=== PATIENT | male | born 1955 | race Caucasian/White ===

== ENCOUNTER 2019-12-21 09:22 | Day surgery (SDC) | payer OTHER ==
[~2019-12-21] VITALS: Ht 175.3 cm; Wt 86.2 kg
[~2019-12-21 09:22] MED LIST: ADULT LOW DOSE81 MG PO; FLOMAX0.4 MG PO; HYDROCHLOROTHIA25 MG PO; MULTIVITAMINS1 EAC7 PO; OMEPRAZOLE20 MG PO; PRAVACHOL20 MG PO; VITAMIN D325 MC2 PO
--- NOTE | 2019-12-21 11:26 | NUR ---
12/21/19 1126 Lexie Price 1122 PATIENT ARRIVES TO PACU AWAKE, BUT DROWSY. RESP EVEN AND UNLABORED, ROOM AIR SATS >90%. PATIENT DENIES PAIN/NAUSEA. PATIENT ASLEEP/SNORING WHEN NOT STIMULATED.
--- NOTE | 2019-12-22 07:46 | OR ---
[facility] [address] [place], [place] [address] Signed DATE OF OPERATION: 12/21/2019 SURGEON: Grisel Malloy MD PREOPERATIVE DIAGNOSES: 1. Generalized abdominal pain. 2. Guaiac-positive stool. 3. Possible family history of colonic polyps. 4. Gastroesophageal reflux disease. 5. Daily aspirin use. POSTOPERATIVE DIAGNOSES: 1. Moderate sized hiatal hernia (44-38 cm). 2. Mild diffuse gastritis. 3. Moderate sigmoid diverticulosis. 4. A 4 mm polyps x2, distal right colon. 5. A 4 mm polyps x1, transverse colon. PROCEDURES: 1. EGD with CLOtest and biopsies of the pyloric bulb and antrum. 2. Colonoscopy with hot biopsy. ESTIMATED BLOOD LOSS: None. INDICATIONS: Slick is a 64-year-old gentleman, who asked to see me for upper and lower endoscopy. He was having generalized abdominal pain, was found to have guaiac-positive stool. He is known to have acid reflux for years and uses aspirin on a daily basis. He is pretty sure there are family members, who have colonic polyps. He was going to check with his family to clarify that in more detail. In the office I had given Slick pamphlets on both upper and lower endoscopy. We looked at those together in detail. He understands the nature of the two tests along with the risks including, but not limited to gas bloating, crampy abdominal pain, bleeding, perforation requiring surgery, and missed diagnosis. He also understands the need for IV conscious sedation. He had expressed understanding and wished to proceed. DESCRIPTION OF PROCEDURE: Slick was taken into our endoscopy suite and placed in the supine semi-recumbent position. The posterior oropharynx was anesthetized with lidocaine spray. A bite block Electronically Signed By: GRISEL MALLOY MD 12/22/19 0746 PATIENT NAME: SLICK HEDRICK OPERATIVE REPORT DATE OF : 51 REPORT #: [id number] PHYSICIAN: GRISEL MALLOY MD PCP: KARLIE ALMAGUER REPORT IS CONFIDENTIAL AND NOT TO BE RELEASED WITHOUT AUTHORIZATION [facility] [address] [place], [place] [address] Signed was utilized for the case. A total of 8 mg of Versed and 200 mcg fentanyl was used to cover both upper and lower endoscopy. The adult gastroscope had been introduced and advanced out into the third portion of the duodenum under direct visualization of camera without difficulty. The duodenum and pyloric channel were not particularly concerning. He seemed to have mild inflammatory changes throughout his stomach. We took a biopsy from the antrum for CLOtest as well as pathologic review. Upon retroflexion of scope, we can easily see a moderate-sized hiatal hernia. It measured out 44-38 cm. His Z-line is relatively intact. There was no Wilson's mucosa and no distal esophagitis. The middle and upper esophagus were unremarkable. After this, the gas had been suctioned out and the gastroscope removed. Slick tolerated the upper endoscopy quite well. Slick was then rotated into the left lateral decubitus position. He was given IV sedation with ongoing Versed and fentanyl. A digital rectal exam had been performed and he does have an indurated prostate gland. The adult colonoscope was introduced and advanced under direct visualization of camera up into the cecum itself. He did require some extra sedation on the way in. His prep was average. We could easily see the appendiceal orifice and ileocecal valve. The scope was slowly withdrawn. The above-mentioned polyps were easily removed with the help of hot biopsy forceps. He also has moderate sigmoid diverticulosis. They are moderate in size, moderate in number, and scattered about. Upon retroflexion of scope in the rectum, he had some very tiny internal anal skin tags. After this, the gas was suctioned out and the colonoscope removed. Slick tolerated the lower endoscopy quite well. RECOMMENDATIONS: I will see Slick back in my office in 7 to 14 days to review his results. He can resume his aspirin in one week. He can resume his other medications today. Grisel Malloy MD ALB/MODL /[id number] cc: SOPHIA Yost MD Electronically Signed By: GRISEL MALLOY MD 12/22/19 0746 PATIENT NAME: SLICK HEDRICK OPERATIVE REPORT DATE OF : 51 REPORT #: [id number] PHYSICIAN: GRISEL MALLOY MD PCP: KARLIE ALMAGUER REPORT IS CONFIDENTIAL AND NOT TO BE RELEASED WITHOUT AUTHORIZATION [address] [address] Signed Copies: KARLIE ALMAGUER ANDREW L MD ~ Electronically Signed By: GRISEL MALLOY MD 12/22/19 0746 PATIENT NAME: SLICK HEDRICK OPERATIVE REPORT DATE OF : 51 REPORT #: [id number] PHYSICIAN: GRISEL MALLOY MD PCP: KARLIE ALMAGUER REPORT IS CONFIDENTIAL AND NOT TO BE RELEASED WITHOUT AUTHORIZATION
--- NOTE | 2019-12-23 14:45 | PATH ---
[facility] [address] [facility] [place], [place] [address] Signed SPECIMEN(S): A DUODENAL BULB SPECIMEN(S): B ANTRUM/ANTRAL BIOPSY SPECIMEN(S): C DISTAL ASCENDING POLYP SPECIMEN(S): D TRANSVERSE POLYP SPECIMEN SOURCE: A. DUODENAL BULB B. ANTRUM/ANTRAL BIOPSY C. DISTAL ASCENDING POLYP D. TRANSVERSE POLYP CLINICAL HISTORY: Positive guaiac stool, abdominal pain. Postop: Gastritis, diverticulosis, colon polyps. MICROSCOPIC DESCRIPTION: Histologic sections of all submitted blocks are examined by light microscopy. These findings, together with the gross examination, support the pathologic diagnosis. FINAL PATHOLOGIC DIAGNOSIS: A. Duodenum, bulb, biopsy: - Duodenal mucosa with no histopathologic abnormality. - Negative for dysplasia or malignancy. B. Stomach, antrum, biopsy: - Antral mucosa with chronic, inactive gastritis and focal complete intestinal metaplasia. - Negative for Helicobacter organisms on HE stain. - Negative for dysplasia or malignancy. C. Colon, distal ascending, polyp, polypectomy: - Fragments of cauterized colonic mucosa. - Negative for high-grade dysplasia or malignancy. - See Comment. D. Colon, transverse, polyp, polypectomy: - Cauterized colonic mucosa. - Negative for high-grade dysplasia or malignancy. - See Comment. COMMENT: Regarding specimens C and D: Multiple additional sections were examined. The degree of cautery artifact present precludes complete histologic examination; however, the tissue is favored to be negative PATIENT NAME: RYLEYJUANCARLOS Kylie PATHOLOGY DATE OF : 51 REPORT #: [id number] PHYSICIAN: MARY ANNE HERZOG PCP: KARLIE ALMAGUER REPORT IS CONFIDENTIAL AND NOT TO BE RELEASED WITHOUT AUTHORIZATION [facility] [address] [place], [place] [address] Signed for low-grade dysplasia. NAL:cml:C2NR GROSS DESCRIPTION: Four specimens are received in four containers, labeled "WW." A. The specimen, labeled "WW, 1," and designated on the requisition "duodenum bulb," is received in formalin and consists of one vaughan soft tissue fragment that measures 0.3 cm in greatest dimension. The specimen is entirely submitted in cassette (A1). B. The specimen, labeled "WW, 2," and designated on the requisition "antrum," is received in formalin and consists of one vaughan soft tissue fragment that measures 0.3 cm in greatest dimension. The specimen is entirely submitted in cassette (B1). C. The specimen, labeled "WW, 3," and designated on the requisition "distal ascending polyp," is received in formalin and consists of two vaughan soft tissue polypoid fragments that measure 0.3 cm in greatest dimension. The specimen is entirely submitted in cassette (C1). D. The specimen, labeled "WW, 4," and designated on the requisition "transverse polyp," is received in formalin and consists of one vaughan soft tissue polypoid fragment that measures 0.3 cm in greatest dimension. The specimen is entirely submitted in cassette (D1). AT (under the direct supervision of a pathologist) The Gross Description was prepared using a voice recognition system. The report was reviewed for accuracy; however, sound-alike word errors, addition and/or deletions may occur. If there is any question about this report, please contact Client Services. PERFORMING LABORATORY: The technical component was performed by [facility], [address] [place] [id number] (Van Cdl Driver: Payton Cardozo MD; CLIA# [id number]). [facility] [address] [address] [address] (CLIA# [id number]). Diagnostician: Ansley Stone MD Pathologist Electronically Signed 12/23/2019 Copies: PATIENT NAME: JUANCARLOS HEDRICK PATHOLOGY DATE OF : 51 REPORT #: [id number] PHYSICIAN: MARY ANNE PATHOLOGY PCP: KARLIE ALMAGUER REPORT IS CONFIDENTIAL AND NOT TO BE RELEASED WITHOUT AUTHORIZATION [facility] [address] [place] [place], [place] [address] Signed ~ PATIENT NAME: JUANCARLOS HEDRICK PATHOLOGY DATE OF : 51 REPORT #: [id number] PHYSICIAN: MARY ANNE PATHOLOGY PCP: KARLIE ALMAGUER MAGNETIZER REPORT IS CONFIDENTIAL AND NOT TO BE RELEASED WITHOUT AUTHORIZATION
== END 2019-12-21 12:00 | disposition home or self-care (01) ==
LOC: OPS 09:22
PROVIDERS: Colon & Rectal Surgery
PROC: 0DBK8ZZ Excision of Ascending Colon, Via Natural or Artificial Opening Endoscopic (ICD-10-PCS; 2019-12-21)
PROC: 0DBL8ZZ Excision of Transverse Colon, Via Natural or Artificial Opening Endoscopic (ICD-10-PCS; 2019-12-21)
PROC: 0DB98ZX Excision of Duodenum, Via Natural or Artificial Opening Endoscopic, Diagnostic (ICD-10-PCS; principal; 2019-12-21 10:30)
PROC: 0DB78ZX Excision of Stomach, Pylorus, Via Natural or Artificial Opening Endoscopic, Diagnostic (ICD-10-PCS; 2019-12-21 10:30)
DX: K63.5 Polyp of colon (principal); K64.8 Other hemorrhoids; K57.30 Diverticulosis of large intestine without perforation or abscess without bleeding; K29.50 Unspecified chronic gastritis without bleeding; I10 Essential (primary) hypertension; K21.9 Gastro-esophageal reflux disease without esophagitis; E78.5 Hyperlipidemia, unspecified; Z79.899 Other long term (current) drug therapy; Z79.82 Long term (current) use of aspirin
CPT/HCPCS: 86677; 88305; 99153; G0500; J2250; J3010; J7121

== ENCOUNTER 2024-05-09 19:55 | Emergency (ER) | payer OTHER ==
[~2024-05-09] VITALS: Ht 175.3 cm; Wt 74.6 kg
[2024-05-09 20:19] LABS: HEMATOCRIT 41.8 % (35.0-50.0); HEMOGLOBIN 14.5 g/dL (12.0-18.0); MCH 31.8 (27-36); MCHC 34.6 g/dl (30-36); MCV 91.9 fl (81-99); PLATELET COUNT 234 K/uL (140-440); RBC 4.55 M/ul (4.3-5.7); RDW 14.4 (10.5-15.0)
[2024-05-09] MEDS ORDERED: ALBUTEROL SULFATE 0.5% 2.5 MG/0.5 ML VIAL INH ONE (20:30)
[2024-05-09] MEDS ORDERED: IPRATROPIUM BROMIDE 2.5 ML VIAL INH ONE (20:30)
[2024-05-09 20:34] LABS: ALBUMIN/GLOBULIN RATIO 1.25 (1.1-2.4); ANION GAP 13.3 (7-21); BILIRUBIN, TOTAL 0.4 ng/dL (0.2-1.0); BUN/CREATININE RATIO 16.19 (6.0-28.6); CALCIUM 8.7 mg/dL (8.5-10.1); CREATININE, SERUM 1.05 mg/dL (0.70-1.30); MAGNESIUM 2.1 mg/dL (1.8-2.4); POTASSIUM 3.3 mmol/L (3.5-5.1); PROTEIN, TOTAL 7.2 g/dL (6.4-8.2)
[2024-05-09 20:37] LABS: EOSINOPHILS, MANUAL DIFF 18; LYMPHOCYTES, MANUAL DIFF 15; MONOCYTES, MANUAL DIFF 6; NEUTROPHILS, MANUAL DIFF 61
[2024-05-09] MEDS ORDERED: AZITHROMYCIN 250 MG TAB PO ONE (21:30)
[2024-05-09] MEDS ORDERED: PREDNISONE20 MG PO (22:03)
[2024-05-09] MEDS ORDERED: ZITHROMAX250 MG PO (22:03)
[2024-05-09 22:23] VITALS: BP 120/80
--- NOTE | 2024-05-13 14:36 | EKG ---
[facility] [address] [facility] [place] [address] Signed Sinus tachycardia Right axis deviation Possible Right ventricular hypertrophy Abnormal ECG No previous ECGs available Confirmed by Divya Salcido MD ([id number]) on 05/13/2024 2:36:07 PM Electronically Signed By: DIVYA SALCIDO DO 05/13/24 1436 PATIENT NAME: JUANCARLOS HEDRICK Electrocardiogram DATE OF : 51 PHYSICIAN: DIVYA SALCIDO DO REPORT #: [id number] REPORT IS CONFIDENTIAL AND NOT TO BE RELEASED WITHOUT AUTHORIZATION
== END 2024-05-09 22:27 | disposition home or self-care (01) ==
LOC: ED 19:55
PROVIDERS: Internal Medicine
DX: J44.1 Chronic obstructive pulmonary disease with (acute) exacerbation (principal); K44.9 Diaphragmatic hernia without obstruction or gangrene; Z87.891 Personal history of nicotine dependence; Z88.5 Allergy status to narcotic agent; Z79.82 Long term (current) use of aspirin; Z79.899 Other long term (current) drug therapy
CPT/HCPCS: 36415; 71045; 80053; 83735; 83880; 84484; 85025; 93005; 93010; 94667; 99285-25

== ENCOUNTER 2025-05-17 08:25 | Emergency (ER) | payer OTHER ==
[~2025-05-17] VITALS: Ht 175.3 cm; Wt 75.6 kg
[~2025-05-17 08:25] MED LIST changes: +PREDNISONE20 MG PO; +ZITHROMAX250 MG PO
[2025-05-17] MEDS ORDERED: ASPIRIN 81 MG CHEW PO ONE (08:30)
[2025-05-17 08:42] LABS: BASOPHILS 0.5 % (0.2-1.2); EOSINOPHILS 5.7 % (0.8-7.0); LYMPHOCYTES 14.9 % (21.8-53.1); MCH 30.6 PG (25.7-32.2); MCHC 33.9 g/dL (32.3-36.5); MCV 90.3 fL (79.0-92.2); MONOCYTES 13.0 % (5.3-12.2); NEUTROPHILS 65.6 % (34.0-67.9); RBC 5.13 M/uL (4.63-6.08)
[2025-05-17] MEDS ORDERED: LIPITOR10 MG (08:54)
[2025-05-17 09:06] LABS: ALT (SGPT) 38.0 U/L (14-59); AST (SGOT) 27.0 U/L (15-37); GLOMERULAR FILTRATION RATE,EST 91.0 mL/min (>60); PROTEIN, TOTAL 8.1 g/dL (6.4-8.2); UREA NITROGEN 13.0 mg/dL (7-18)
[2025-05-17 10:21] VITALS: BP 130/96
--- NOTE | 2025-05-18 21:14 | EKG ---
[facility] [address] [facility] [place] [address] Signed Normal sinus rhythm with sinus arrhythmia Right superior axis deviation Low voltage QRS Abnormal ECG When compared with ECG of 09-MAY-2024 20:01, Questionable change in QRS axis Confirmed by John Woodson MD () on 05/18/2025 9:14:34 PM Electronically Signed By: JOHN WOODSON MD 05/18/252113 PATIENT NAME: JUANCARLOS HEDRICK Electrocardiogram DATE OF : 51 PHYSICIAN: JOHN WOODSON MD REPORT #: [id number] REPORT IS CONFIDENTIAL AND NOT TO BE RELEASED WITHOUT AUTHORIZATION
== END 2025-05-17 10:21 | disposition home or self-care (01) ==
LOC: ED 08:25
PROVIDERS: Emergency Medicine
DX: R07.9 Chest pain, unspecified (principal); J44.9 Chronic obstructive pulmonary disease, unspecified; Z79.82 Long term (current) use of aspirin; Z79.899 Other long term (current) drug therapy; Z87.891 Personal history of nicotine dependence
CPT/HCPCS: 36415; 71045; 80053; 83735; 84484; 85025; 93005; 93010; 99285-25; A9270